=== PATIENT | male | born 1970 | race Caucasian/White ===

== ENCOUNTER 2021-11-05 20:10 | Emergency (ER) | payer SELFPAY ==
[~2021-11-05] VITALS: Ht 175.3 cm; Wt 72.7 kg
[2021-11-05 20:32] VITALS: BP 118/84
== END 2021-11-05 23:14 | disposition left against medical advice (07) ==
LOC: ER 20:11
DX: L29.9 Pruritus, unspecified (principal); Z53.21 Procedure and treatment not carried out due to patient leaving prior to being seen by health care provider

== ENCOUNTER 2021-11-12 13:04 | Emergency (ER) | payer MEDICAID ==
[~2021-11-12] VITALS: Ht 175.3 cm; Wt 72.0 kg
[2021-11-12] MEDS ORDERED: dexamethasone sod phosphate 10mg/ml inj IV STA (13:16)
[2021-11-12] MEDS ORDERED: LIDOcaine Viscous 15ml cup MM STA (13:16)
[2021-11-12] MEDS ORDERED: clindamycin-Cleocin 900mg/D5W 50 ML IV ONE (13:20)
[2021-11-12] MEDS ORDERED: ketorolac tromethamine 15mg/ml inj. IV ONE (14:35)
[2021-11-12] MEDS ORDERED: CLIN-97 PO (14:53)
[2021-11-12] MEDS ORDERED: IBUP-1986 PO (14:54)
[2021-11-12 15:11] VITALS: BP 118/76
== END 2021-11-12 15:13 | disposition home or self-care (01) ==
LOC: ER 13:05
DX: J36 Peritonsillar abscess (principal); F17.210 Nicotine dependence, cigarettes, uncomplicated; F12.10 Cannabis abuse, uncomplicated; F15.10 Other stimulant abuse, uncomplicated; Z88.0 Allergy status to penicillin
CPT/HCPCS: 87081; 87880; 96365; 96375; 99285; J1100; J1885; J3490; 99284

== ENCOUNTER 2022-02-15 20:27 | Emergency (ER) | payer SELFPAY ==
[~2022-02-15] VITALS: Ht 175.3 cm; Wt 72.7 kg
[~2022-02-15 20:27] MED LIST: CLIN-97 PO; IBUP-1986 PO
[2022-02-15 20:41] VITALS: BP 117/74
== END 2022-02-15 23:45 | disposition left against medical advice (07) ==
LOC: ER 20:28
DX: L08.9 Local infection of the skin and subcutaneous tissue, unspecified (principal); Z53.21 Procedure and treatment not carried out due to patient leaving prior to being seen by health care provider

== ENCOUNTER 2022-05-08 20:05 | Emergency (ER) | payer MEDICAID ==
[~2022-05-08] VITALS: Ht 177.8 cm; Wt 72.7 kg
[2022-05-08 21:07] LABS: BASOPHILS # (AUTO) 0.1 X10'3 (0-0.2); BASOPHILS % (AUTO) 0.5 % (0-1); EOSINOPHILS % (AUTO) 0.5 % (0-6); HEMATOCRIT 39.1 % (42.0-52.0); HEMOGLOBIN 13.8 g/dl (14.0-17.9); LYMPHOCYTES # (AUTO) 2.2 X10'3 (1.1-4.8); LYMPHOCYTES % (AUTO) 21.4 % (21-51); MEAN CORPUSCULAR HEMOGLOBIN 33.1 PG (27.0-31.0); MEAN CORPUSCULAR HGB CONC 35.3 g/dL (33.0-36.5); MEAN CORPUSCULAR VOLUME 93.6 FL (78-98); MEAN PLATELET VOLUME 7.1 FL (7.4-10.4); MONOCYTES # (AUTO) 1.2 X10'3 (0-0.9); MONOCYTES % (AUTO) 12.1 % (2-12); NEUTROPHILS # (AUTO) 6.7 X10'3 (1.8-7.7); NEUTROPHILS % (AUTO) 65.5 % (42-75); PLATELET COUNT 253 X10'3 (140-440); RED BLOOD COUNT 4.17 X10'6 (4.70-6.10); RED CELL DISTRIBUTION WIDTH 13.2 % (11.5-14.5); WHITE BLOOD COUNT 10.2 X10'3 (4.5-11.0)
[2022-05-08 21:12] LABS: ALANINE AMINOTRANSFERASE 22 U/L (12-78); ALBUMIN/GLOBULIN RATIO 1.1 (1.1-1.5); ALKALINE PHOSPHATASE 88 IU/L (46-116); ANION GAP 6 (8-16); ASPARTATE AMINO TRANSFERASE 22 U/L (10-37); BILIRUBIN,TOTAL 0.3 MG/DL (0.1-1.0); BLOOD UREA NITROGEN 15 MG/DL (7-18); BUN/CREATININE RATIO 13.3 (5.4-32.0); CALCIUM 8.7 MG/DL (8.5-10.1); CHLORIDE 100 MMOL/L (99-107); CREATININE 1.13 MG/DL (0.60-1.10); GLUCOSE 86 MG/DL (70-104); POTASSIUM 4.1 MMOL/L (3.5-5.1); SODIUM 133 MMOL/L (135-145); TOTAL CARBON DIOXIDE 27.5 MMOL/L (24-32); TOTAL PROTEIN 7.5 G/DL (6.4-8.2); eGFR 69 ML/MIN
[2022-05-08] MEDS ORDERED: hydrOXYzine 25 MG tablet PO ONE (21:15)
[2022-05-08] MEDS ORDERED: quetiapine 100mg tablet PO ONE (21:15)
[2022-05-08 21:23] LABS: ETHANOL < 0.010 GM/DL (0.0-0.010)
[2022-05-08] MEDS ORDERED: prazosin 1mg capsule PO ONE (21:45)
[2022-05-08] MEDS ORDERED: NO HOME MEDS (21:57)
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
[2022-05-08 22:05] LABS: CLARITY,URINE CLEAR (Clear); COLOR,URINE YELLOW (Yellow); GLUCOSE, URINE NEGATIVE (Neg); KETONES,URINE NEGATIVE (Neg); LEUKOCYTE ESTERASE ,URINE NEGATIVE (Neg); NITRITES, URINE NEGATIVE (Neg); OCCULT BLOOD,URINE NEGATIVE (Neg); PH,URINE 6.5 (4.8-8.0); PROTEIN,URINE NEGATIVE (Neg); UROBILINOGEN,URINE 0.2 E.U/dL (0.2-1.0)
[2022-05-08 22:12] LABS: UA COLLECTION TYPE VOIDED; URINE AMPHETAMINE SCREEN POSITIVE (Neg); URINE BARBITUATE SCREEN NEGATIVE (Neg); URINE BENZODIAZEPINES SCREEN NEGATIVE (Neg); URINE CANNABINOID SCREEN POSITIVE (Neg); URINE COCAINE SCREEN NEGATIVE (Neg); URINE METHADONE SCREEN NEGATIVE (Neg); URINE OPIATE SCREEN NEGATIVE (Neg); URINE PHENCYCLIDINE SCREEN NEGATIVE (Neg)
--- NOTE | 2022-05-08 22:30 | NUR ---
The patient is resting on his bed.
--- NOTE | 2022-05-09 00:30 | NUR ---
The patient appears to be sleeping
--- NOTE | 2022-05-09 01:24 | NUR ---
PACKET SENT TO [facility]
--- NOTE | 2022-05-09 01:25 | NUR ---
The patient appears to be sleeping
--- NOTE | 2022-05-09 02:44 | NUR ---
The patient is restless and disturbed by another patient but is continuing to rest on his bed quietly
--- NOTE | 2022-05-09 04:01 | NUR ---
The patient appears to be sleeping
--- NOTE | 2022-05-09 04:41 | NUR ---
BROTHER, RAYMON MARTINEZGORE, . THE PATIENT IS REQUESTING INFORMATION BE ALLOWED TO HIS BROTHER
--- NOTE | 2022-05-09 05:03 | NUR ---
The patient appears to be sleeping
[2022-05-09 05:36] VITALS: BP 95/60
--- NOTE | 2022-05-09 06:30 | NUR ---
Patient laying in bed on his right side. Another patient has been loud and RN noticed patient re-adjusting. Continue to monitor.
--- NOTE | 2022-05-09 08:07 | NUR ---
Patient is sitting up and eating breakfast. No distress observed. Continue to monitor.
--- NOTE | 2022-05-09 09:35 | NUR ---
[facility], [place], evaluating patient. Patient started getting upset about Garland contacting his family. Patient started posturing and threatening to cause some trouble. Patient states "I want to go home and be with my family." [facility]land wanted to get patient a referral with Betsey the Substance Abuse Navigator. Patient did not want to wait around. [facility] to go speak with Doctor to get patient discharged.
== END 2022-05-09 10:10 | disposition home or self-care (01) ==
LOC: ER 20:06
DX: F15.10 Other stimulant abuse, uncomplicated (principal); Z20.822 Contact with and (suspected) exposure to COVID-19; F12.90 Cannabis use, unspecified, uncomplicated; Z72.89 Other problems related to lifestyle; Z88.0 Allergy status to penicillin
CPT/HCPCS: 36415; 80053; 80305; 80320; 81003; 84443; 85025; 87811; 99284; Q0177

== ENCOUNTER 2024-09-26 15:00 | Emergency (ER) | payer MEDICAID, OTHER ==
[~2024-09-26] VITALS: Ht 172.7 cm; Wt 61.4 kg
[~2024-09-26 15:00] MED LIST changes: -CLIN-97 PO; -IBUP-1986 PO; +NO HOME MEDS
[2024-09-26 17:01] VITALS: BP 120/76; PULSE 73; RESP 14; TEMP 98.4; O2SAT 99
== END 2024-09-26 17:06 ==
LOC: EEVIPCON 15:01 → ER 15:01
DX: T71.161A Asphyxiation due to hanging, accidental, initial encounter (principal); F10.90 Alcohol use, unspecified, uncomplicated; F12.90 Cannabis use, unspecified, uncomplicated; F15.90 Other stimulant use, unspecified, uncomplicated; Z88.0 Allergy status to penicillin; Y92.89 Other specified places as the place of occurrence of the external cause; Y90.9 Presence of alcohol in blood, level not specified
CPT/HCPCS: 70490; 99284

== ENCOUNTER 2024-10-15 17:07 | Emergency (ER) | payer MEDICAID ==
[~2024-10-15] VITALS: Ht 175.3 cm; Wt 70.7 kg
[~2024-10-15 17:07] MED LIST changes: +GABA-535 PO; +MIRT-142 PO; -NO HOME MEDS; +QUET100T34 PO
[2024-10-15 17:22] VITALS: BP 119/83; PULSE 83; RESP 18; TEMP 97.3; O2SAT 97
== END 2024-10-15 20:50 | disposition left against medical advice (07) ==
LOC: ER 17:08
DX: Z00.8 Encounter for other general examination (principal); Z53.21 Procedure and treatment not carried out due to patient leaving prior to being seen by health care provider; Z88.0 Allergy status to penicillin

== ENCOUNTER 2024-12-15 18:41 | Emergency (ER) | payer MEDICAID ==
[~2024-12-15] VITALS: Ht 175.3 cm; Wt 67.0 kg
[2024-12-15 19:31] LABS: BASOPHILS # (AUTO) 0.1 X10'3 (0-0.2); BASOPHILS % (AUTO) 0.6 % (0-1); EOSINOPHILS # (AUTO) 0.1 X10'3 (0-0.9); EOSINOPHILS % (AUTO) 1.3 % (0-6); HEMOGLOBIN 14.7 g/dl (14.0-17.9); LYMPHOCYTES # (AUTO) 2.2 X10'3 (1.1-4.8); LYMPHOCYTES % (AUTO) 22.4 % (21-51); MEAN CORPUSCULAR HEMOGLOBIN 30.6 PG (27.0-31.0); MEAN CORPUSCULAR HGB CONC 33.3 g/dL (33.0-36.5); MEAN CORPUSCULAR VOLUME 91.9 FL (78-98); MEAN PLATELET VOLUME 8.3 FL (7.4-10.4); NEUTROPHILS # (AUTO) 6.3 X10'3 (1.8-7.7); NEUTROPHILS % (AUTO) 65.7 % (42-75); PLATELET COUNT 248 X10'3 (140-440); RED BLOOD COUNT 4.78 X10'6 (4.70-6.10); RED CELL DISTRIBUTION WIDTH 13.7 % (11.5-14.5); WHITE BLOOD COUNT 9.6 X10'3 (4.5-11.0)
[2024-12-15 19:33] LABS: ANION GAP 12 (8-16); BLOOD UREA NITROGEN 17 MG/DL (7-18); CALCIUM 8.6 MG/DL (8.5-10.1); CHLORIDE 104 MMOL/L (99-107); CREATININE 1.13 MG/DL (0.60-1.10); ETHANOL 84 MG/DL (<10); GLUCOSE 120 MG/DL (70-104); POTASSIUM 3.9 MMOL/L (3.5-5.1); SODIUM 141 MMOL/L (135-145); TOTAL CARBON DIOXIDE 24.7 MMOL/L (24-32); eCRCL 72 ML/MIN; eGFR 68 ML/MIN
[2024-12-15] MEDS ORDERED: GABA-535 PO (20:21)
[2024-12-15] MEDS ORDERED: GABA-530 PO (20:21)
[2024-12-15] MEDS ORDERED: MIRT-87 PO (20:21)
[2024-12-15] MEDS ORDERED: QUET-1 PO (20:21)
[2024-12-15] MEDS: quetiapine 100mg tablet PO SCH (21:16)
[2024-12-15] MEDS: gabapentin 400mg capsule PO SCH (21:16)
[2024-12-15] MEDS: mirtazapine 15mg tablet PO SCH (21:16)
[2024-12-16 00:48] LABS: BILIRUBIN,URINE NEGATIVE (Neg); CLARITY,URINE CLEAR (Clear); COLOR,URINE YELLOW (Yellow); GLUCOSE, URINE NEGATIVE (Neg); KETONES,URINE NEGATIVE (Neg); LEUKOCYTE ESTERASE ,URINE NEGATIVE (Neg); NITRITES, URINE NEGATIVE (Neg); OCCULT BLOOD,URINE NEGATIVE (Neg); PH,URINE 5.5 (4.8-8.0); PROTEIN,URINE NEGATIVE (Neg); UROBILINOGEN,URINE 0.2 E.U/dL (0.2-1.0)
[2024-12-16 00:49] LABS: UA COLLECTION TYPE VOIDED
[2024-12-16 00:57] LABS: URINE AMPHETAMINE SCREEN POSITIVE (Neg); URINE BARBITUATE SCREEN NEGATIVE (Neg); URINE BENZODIAZEPINES SCREEN NEGATIVE (Neg); URINE CANNABINOID SCREEN POSITIVE (Neg); URINE COCAINE SCREEN NEGATIVE (Neg); URINE METHADONE SCREEN NEGATIVE (Neg); URINE OPIATE SCREEN NEGATIVE (Neg); URINE PHENCYCLIDINE SCREEN NEGATIVE (Neg)
[2024-12-16 08:41] VITALS: BP 94/56; PULSE 74; RESP 18; O2SAT 98
[2024-12-16 11:43] VITALS: TEMP 97.6
== END 2024-12-16 11:47 | disposition home or self-care (01) ==
LOC: ER 18:42
DX: R45.851 Suicidal ideations (principal); F32.A Depression, unspecified; F12.90 Cannabis use, unspecified, uncomplicated; F17.200 Nicotine dependence, unspecified, uncomplicated; F15.90 Other stimulant use, unspecified, uncomplicated; Z88.0 Allergy status to penicillin; Z88.8 Allergy status to other drugs, medicaments and biological substances; Z20.822 Contact with and (suspected) exposure to COVID-19
CPT/HCPCS: 36415; 80048; 80305; 80320; 81003; 85025; 87811; 99285

== ENCOUNTER 2024-12-26 10:10 | Emergency (ER) | payer MEDICAID ==
[~2024-12-26] VITALS: Ht 175.3 cm; Wt 66.3 kg
[~2024-12-26 10:10] MED LIST changes: -MIRT-142 PO; +MIRT-87 PO; +QUET-1 PO; -QUET100T34 PO
--- NOTE | 2024-12-26 10:21 | ELECTROCARDIOGRAPH REPORT ---
[facility] Test Date: 2024-12-26 Test Time: 10:19:09 Pat Name: ALYCE GONZALEZ Department: [facility] Patient ID: [id number] Room: Gender: M Senior Web Engineer: : 1970 Requested By: MALINI MERCHANT Order Number: [id number] Reading MD: Dr. Tre Roberts Measurements Intervals [place] Rate: 110 P: 81 FL: 146 QRS: 58 QRSD: 87 T: 50 QT: 324 QTc: 439 Interpretive Statements Sinus tachycardia Probable left atrial enlargement Electronically Signed On 12-26-2024 20:38:[address] Tre Roberts Please click the below link to view image of tracing.
[2024-12-26 10:30] LABS: BASOPHILS # (AUTO) 0.1 X10'3 (0-0.2); BASOPHILS % (AUTO) 1.1 % (0-1); EOSINOPHILS # (AUTO) 0.1 X10'3 (0-0.9); EOSINOPHILS % (AUTO) 1.4 % (0-6); HEMATOCRIT 42.4 % (42.0-52.0); HEMOGLOBIN 14.2 g/dl (14.0-17.9); LYMPHOCYTES # (AUTO) 2.3 X10'3 (1.1-4.8); MEAN CORPUSCULAR HEMOGLOBIN 30.7 PG (27.0-31.0); MEAN CORPUSCULAR HGB CONC 33.4 g/dL (33.0-36.5); MEAN CORPUSCULAR VOLUME 91.8 FL (78-98); MEAN PLATELET VOLUME 7.7 FL (7.4-10.4); MONOCYTES % (AUTO) 11.3 % (2-12); NEUTROPHILS # (AUTO) 5.6 X10'3 (1.8-7.7); NEUTROPHILS % (AUTO) 61.2 % (42-75); PLATELET COUNT 283 X10'3 (140-440); RED BLOOD COUNT 4.62 X10'6 (4.70-6.10); RED CELL DISTRIBUTION WIDTH 14.1 % (11.5-14.5); WHITE BLOOD COUNT 9.2 X10'3 (4.5-11.0)
[2024-12-26 10:54] LABS: ALANINE AMINOTRANSFERASE 26 U/L (12-78); ALBUMIN 3.8 G/DL (3.4-5.0); ALBUMIN/GLOBULIN RATIO 1.1 (1.1-1.5); ALKALINE PHOSPHATASE 66 IU/L (46-116); ANION GAP 9 (8-16); ASPARTATE AMINO TRANSFERASE 40 U/L (10-37); BILIRUBIN,TOTAL 0.5 MG/DL (0.1-1.0); BLOOD UREA NITROGEN 7 MG/DL (7-18); BUN/CREATININE RATIO 8.1 (10.0-20.0); CALCIUM 8.5 MG/DL (8.5-10.1); CHLORIDE 103 MMOL/L (99-107); CREATININE 0.86 MG/DL (0.60-1.10); GLUCOSE 107 MG/DL (70-104); POTASSIUM 3.4 MMOL/L (3.5-5.1); SODIUM 136 MMOL/L (135-145); TOTAL CARBON DIOXIDE 23.8 MMOL/L (24-32); TOTAL PROTEIN 7.2 G/DL (6.4-8.2); eCRCL 94 ML/MIN; eGFR > 90 ML/MIN
--- NOTE | 2024-12-26 10:57 | RADIOLOGY REPORT ---
EXAM: DI CHEST,SINGLE VIEW Indication: CP Technique: Single frontal view of the chest was obtained Comparison: None FINDINGS: Lines and Tubes: None Lungs: No focal consolidation. Pleura: No effusion. No pneumothorax. Cardiomediastinal contours: Unremarkable Bones: No acute osseous abnormality. IMPRESSION: No acute cardiopulmonary disease.
[2024-12-26 11:02] LABS: PRO BRAIN NATRIURETIC PEPTIDE 404 PG/ML (0-125)
--- NOTE | 2024-12-26 11:39 | Physician Documentation ---
History of Present Illness ~ Chief Complaint: Bloody Sputum Stated Complaint: MULTIPLE MED COMPLAINTS Time Seen by MD: 11:37 Primary Medical Doctor: Robert walk-in HPI 54-year-old male presenting with shortness of breath and a cough that has been present for the past month. Patient states that his coughs have been productive of bloody sputum. He also states that it hurts when he breathes. He has pain in his chest when he takes deep breaths. He also has trouble catching his breath. The patient endorses that he is a heavy smoker and has smoked for many years. He denies any fever, chills or any other associated symptoms. He states that he was incarcerated and was released from skilled nursing nine months ago. While in skilled nursing he states that he saw a doctor who told him he has several nodules in his lungs and that he needs to immediately stop smoking. He states that he stopped for a little while but once again started when he got out of skilled nursing. Medication Reconciliation Allergies: Coded Allergies: Penicillins (Verified Allergy, Unknown, UNKNOWN, 12/15/24) Scheduled Gabapentin (Gabapentin), 1 CAP PO TID, (Reported) Mirtazapine (Mirtazapine), 3 TAB PO HS, (Reported) Quetiapine Fumarate (Seroquel), 1 TAB PO HS, (Reported) Past Medical History Past Medical History: Depression, Psychosis Past Surgical History: no surgical history Patient History: FH: diabetes mellitus MOTHER Paternal grandmother Alcohol Use: Occasionally Drug Use: marijuana, methamphetamine Lives In: Home Review of Systems All Other Systems at this time: Reviewed and Negative Physical Exam Vital Signs: Temperature: 98.9, Source: Oral, Heart Rate: 110, Respiratory Rate: 16, BP: 105/78, Pulse Oximetry: 97, Weight: 66.300 Oxygen Flow Rate: 0 Physical Exam I have reviewed the triage vitals. CONST: Well developed and well nourished. In no acute distress HENT: Head Atraumatic EYES: Pupils are equal, round and reactive to light. Normal conjunctiva NECK: Normal range of motion. Supple. CARDIO: Normal rate and regular rhythm. No murmurs, rubs, or gallops. S1, S2. PULM/CHEST: No respiratory distress. Lungs clear to auscultation. No wheeze ABD: Soft and nontender. Nondistended. Bowel sounds normal. No guarding. : Exam deferred MSK: No edema. No deformity. NEURO: Alert and oriented to person, place and time. Moving all extremities SKIN: Warm and dry. PSYCH: Normal mood and affect. Good eye contact. Progress Results/Orders Results/Orders Orders - MALINI MERCHANT MD Chest,Single View (12/26/24 10:15) Monitor (12/26/24 10:15) Saline Lock (12/26/24 10:15) Oxygen (12/26/24 10:15) Hs Troponin I W Calculations (12/26/24 13:15) Cta Chest Pe (12/26/24 ) Completed Orders - MALINI MERCHANT MD Chest,Single View (12/26/24 10:15) Cbc/Diff (12/26/24 10:15) PBNP (12/26/24 10:15) Electrocardiogram (12/26/24 10:15) CMP (12/26/24 10:15) Hs Troponin I W Calculations (12/26/24 10:15) Hs Troponin I W Calculations (12/26/24 12:15) Prednisone Tablet (Prednisone Tablet) (12/26/24 11:45) Hydrocodone/Apap 5/325mg Tab ([place] 5/32 (12/26/24 11:45) Cta Chest Pe (12/26/24 ) Normal Saline 1000ml (Sodium Chloride 10 (12/26/24 11:45) Iohexol 350mg/Ml 100ml (Omnipaque 350mg/ (12/26/24 12:08) Lorazepam Tablet (Ativan Tablet) (12/26/24 12:15) Ondansetron Inj. (Zofran 4mg/2ml Vial) (12/26/24 15:05) Medications Received in ER Medications (Trade) Dose Ordered Sig/Alissa Route PRN Reason Start Time Stop Time Status Last Admin Dose Admin (predniSONE tablet) 60 mg ONCE ONCE PO 12/26/24 11:45 12/26/24 11:47 DC 12/26/24 12:04 60 MG ([place] 5/325mg tablet) 2 tab ONCE ONCE PO 12/26/24 11:45 12/26/24 11:47 DC 12/26/24 12:04 2 TAB (Ativan tablet) 2 mg ONCE ONCE PO 12/26/24 12:15 5/1/25 12:16 DC 12/26/24 12:38 2 MG (Zofran 4mg/2ml vial) 4 mg ONCE ONCE IV 12/26/24 15:05 12/26/24 15:06 DC 12/26/24 15:17 4 MG Vital Signs 12/26/24 12/26/24 12/26/24 12/26/24 10:11 12:04 12:51 15:00 Temp 98.9 97.8 Pulse 110 77 Resp 16 18 19 18 B/P (MAP) 105/78 117/66 (83) Pulse Ox 97 98 O2 Flow Rate 0 Laboratory Tests Test 12/26/24 10:20 12/26/24 12:27 White Blood Count 9.2 Red Blood Count 4.62 L Hemoglobin 14.2 Hematocrit 42.4 Mean Corpuscular Volume 91.8 Mean Corpuscular Hemoglobin 30.7 Mean Corpuscular Hemoglobin Concent 33.4 Red Cell Distribution Width 14.1 Platelet Count 283 Mean Platelet Volume 7.7 Neutrophils (%) (Auto) 61.2 Lymphocytes (%) (Auto) 25.0 Monocytes (%) (Auto) 11.3 Eosinophils (%) (Auto) 1.4 Basophils (%) (Auto) 1.1 H Neutrophils # (Auto) 5.6 Lymphocytes # (Auto) 2.3 Monocytes # (Auto) 1.0 H Eosinophils # (Auto) 0.1 Basophils # (Auto) 0.1 CBC Comment Sodium Level 136 Potassium Level 3.4 L Chloride Level 103 Carbon Dioxide Level 23.8 L Anion Gap 9 Blood Urea Nitrogen 7 Creatinine 0.86 Estimated GFR/1.73 m2 > 90 BUN/Creatinine Ratio 8.1 L Glucose Level 107 H Calcium Level 8.5 Total Bilirubin 0.5 Aspartate Amino Transf (AST/SGOT) 40 H Alanine Aminotransferase (ALT/SGPT) 26 Alkaline Phosphatase 66 Troponin I High Sensitivity 6 8 Pro-B-Type Natriuretic Peptide 404 H Total Protein 7.2 Albumin 3.8 Globulin 3.4 Albumin/Globulin Ratio 1.1 Chemistry Comments Troponin I High Sens Percent Delta 33 Troponin I Hi Sens Absolute Change 2 EKG/XRAY/CT/US/VASC/MRI EKG : Additional Comment Sinus tachycardia with a rate of 110 beats per minute, no ischemia, normal axis, EKG interpreted by me Chest X-Ray : Additional Comments EXAM: DI CHEST,SINGLE VIEW Indication: CP Technique: Single frontal view of the chest was obtained Comparison: None FINDINGS: Lines and Tubes: None Lungs: No focal consolidation. Pleura: No effusion. No pneumothorax. Cardiomediastinal contours: Unremarkable Bones: No acute osseous abnormality. IMPRESSION: No acute cardiopulmonary disease. Departure Disposition: HOME / SELF CARE / HOMELESS Impression: Primary Impression: COPD exacerbation Additional Impressions: Nicotine dependence Tobacco use disorder Referrals: NO PRIMARY CARE PROVIDER (PCP) Prescriptions Nicotine Polacrilex (Nicotine Lozenge) 2 Mg Lozenge 1 LOZENGE SL Q12H for 10 Days, #20 LOZENGE 0 Refills Prov: MALINI MERCHANT MD 12/26/24 albuterol inhaler (Pro-Air Inhaler) 8.5 Gm Inhaler 2 PUFFS INH Q4HPRN PRN for wheezing for 30 Days, #18 GM Prov: MALINI MERCHANT MD 12/26/24 Azithromycin (Azithromycin) 250 Mg Tablet 1 TAB PO UD for 5 Days, #6 TAB 2 the first day followed by 1 for days 2-5 Prov: MALINI MERCHANT MD 12/26/24 MALINI MERCHANT MD December 26, 2024 11:39
[2024-12-26] MEDS: normal saline 1000ml 1,000 ML IV ONE (12:02)
[2024-12-26] MEDS: predniSONE 20 mg tablet PO ONE (12:04)
[2024-12-26] MEDS: HYDROcodone/acetaminophen 5mg/325mg tablet PO ONE (12:04)
[2024-12-26] MEDS ORDERED: iohexol 350MG/ML 100ml bottle IV ONE (12:08)
[2024-12-26] MEDS: LORazepam 1 MG tablet PO ONE (12:38)
[2024-12-26 15:00] VITALS: BP 117/66; PULSE 77; RESP 18; O2SAT 98
[2024-12-26] MEDS: ondansetron/PF 4mg/2ml inj IV ONE (15:17)
--- NOTE | 2024-12-26 16:14 | RADIOLOGY REPORT ---
INDICATION: r/o pe, assess for lung ca COMPARISON: None TECHNIQUE: Multidetector CTA of the chest was performed of the chest with 100 cc of intravenous contr ast. PULMONARY ANGIOGRAPHY PROTOCOL was utilized using a bolus-tracking technique centered on the juan n pulmonary artery. Axial, coronal and sagittal multiplanar and MIP reformats were performed. Radiation Dose Information: CT Dose: CTDI volume is 32.66 mGy. Dose-length product is 389.2 mGy*cm The dose indicators for CT are the volume Computed Tomography (CT) Dose Index (CTDIvol) and the Dose Length Product (DLP), and are measured in units of mGy and mGy-cm, respectively. These indicators are not patient dose, but values generated from the CT scanner acquisition factors. The report includes radiation exposure data for exposures received during this examination. Findings: Pulmonary artery: Normal caliber of the pulmonary artery. No large central or large segmental pulmo nary embolism. Lower neck: Normal thyroid. Lungs: Pulmonary nodules or masses Heart/Vascular Structures: Normal heart size. Normal caliber and enhancement of the aorta. Lymph Nodes: No adenopathy Pleura: No pleural effusion or significant pneumothorax. Musculoskeletal: No acute osseous abnormality. Upper abdomen: Limited portions of the upper abdomen are unremarkable. IMPRESSION: 1. No pulmonary embolism. 2. No pulmonary artery hypertension 3. No infiltrates no effusions no pulmonary nodules or masses.
[2024-12-26] MEDS ORDERED: PRED10TA23 PO (17:05)
[2024-12-26] MEDS ORDERED: AZIT250T82 PO (17:05)
[2024-12-26] MEDS ORDERED: ALBU8HFA INH (17:06)
[2024-12-26] MEDS ORDERED: NICO-669 SL (17:06)
[2024-12-26 17:09] VITALS: TEMP 97.8
== END 2024-12-26 17:11 | disposition home or self-care (01) ==
LOC: ER 10:11
DX: J44.1 Chronic obstructive pulmonary disease with (acute) exacerbation (principal); F17.200 Nicotine dependence, unspecified, uncomplicated; F32.A Depression, unspecified; F29 Unspecified psychosis not due to a substance or known physiological condition; F12.90 Cannabis use, unspecified, uncomplicated; F15.90 Other stimulant use, unspecified, uncomplicated; Z88.0 Allergy status to penicillin; Z79.899 Other long term (current) drug therapy; Z72.89 Other problems related to lifestyle
CPT/HCPCS: 36415; 71045; 71275; 80053; 83880; 84484; 85025; 93005; 96374; 99285; J2405; J7512; Q9967

== ENCOUNTER → 2025-03-15 | Emergency (ER) | payer MEDICAID ==
[~2025-03-15] VITALS: Ht 175.3 cm; Wt 49.7 kg
[~2025-03-15] MED LIST changes: +BENZ9GEL TOP; +HYDR-3965 PO; +NICO-669 SL
[2025-03-15 15:06] VITALS: BP 99/63; PULSE 61; TEMP 98.1; O2SAT 100
--- NOTE | 2025-03-15 16:10 | Physician Documentation ---
HPI ~ General Chief Complaint: Tooth Problem Stated Complaint: TOOTH PROBLEM Time Seen by MD: 15:35 OK to notify your PCP?: Yes Primary Medical Doctor: Robert walk-in Source: patient Mode of Arrival: POV Exam Limitations: no limitations History of Present Illness HPI Comment 54-year-old male presents with right upper tooth pain. Has been taking Tylenol and ibuprofen for pain relief at home with little relief. He has an appointment on Monday to see his dentist and he has been taking clindamycin for the past 7 days. He has multiple dental caries to several remaining teeth but no jaw swelling, cheek swelling or cervical lymphadenopathy. Medication Reconciliation Allergies: Coded Allergies: Penicillins (Verified Allergy, Unknown, UNKNOWN, 12/15/24) Scheduled Gabapentin (Gabapentin), 1 CAP PO TID, (Reported) Mirtazapine (Mirtazapine), 3 TAB PO HS, (Reported) Nicotine Polacrilex (Nicotine Lozenge), 1 LOZENGE SL Q12H Quetiapine Fumarate (Seroquel), 1 TAB PO HS, (Reported) Past Medical History Past Medical History: Depression, Psychosis Past Surgical History: no surgical history Patient History: FH: diabetes mellitus MOTHER Paternal grandmother Alcohol Use: Occasionally Drug Use: marijuana, methamphetamine Lives In: Home Review of Systems All Other Systems at this time: Reviewed and Negative Physical Exam Vital Signs: RN Vital Signs have been reviewed: Yes, Temperature: 98.1, Source: Temporal, Heart Rate: 61, Respiratory Rate: 16, BP: 99/63, Pulse Oximetry: 100, Weight: 49.700 Pulse Oximetry Reflects: adequate oxygenation Physical Exam General: Alert, no distress. HEENT: No injection, moist mucous membranes. Neck: Full range of motion. Respiratory: No respiratory distress, equal chest rise and fall. Chest: No accessory muscle use. Cardiovascular: Regular rate and rhythm. Gastrointestinal: Nondistended. Extremities: Normal range of motion, no deformity. Neurologic: Oriented x4. Psychiatric: Normal mood and affect. Skin: Normal color, warm and dry. Palate: normal inspection Teeth/Gums: carious, fractured tooth, missing teeth, tender, gingiva redness Face: normal inspection Head: normal inspection Neck: non-tender Progress Results/Orders Reviewed/noted all lab results: Yes Results/Orders Vital Signs 03/15/25 15:06 Temp 98.1 Pulse 61 Resp 16 B/P (MAP) 99/63 Pulse Ox 100 Medical Decision Making Additional info obtained from: old records Findings 54-year-old male presents with multiple dental caries. He has been on 7 days of clindamycin and has been taking ibuprofen but is still experiencing pain. His physical exam is reassuring but shows broken number 3 4 and 5 teeth and some gingival redness. He has an appointment with his dentist on Monday and has plans to have extractions of all of these teeth. I gave him a [place] while here in the department and get prescriptions for [place] and benzocaine gel. He should continue with his dentist appointment Monday and continue taking the rest of his prescription for the clindamycin. You can continue to take Tylenol and or ibuprofen for pain relief but take care not to exceed 4000 mg of Tylenol in a 24 hour period. Differential Dx:Considerations: Include: Facial Cellulitis, Periapical abscess, Peridontal abscess, Trigeminal neuralgia, Tooth subluxation Departure Disposition: HOME / SELF CARE / HOMELESS Impression: Primary Impression: Toothache Condition: Stable Discharge Instructions: Dental Pain Additional Instructions: Please continue with your dental appointment on Monday. Please use Tylenol and/or ibuprofen for pain relief and if that is not helping then please use the prescribed [place] but no driving with this. Take care to not take over 4000 mg of Tylenol within a 24 hour period. You can also use the prescribed benzocaine directly at the tooth that is hurting to help with pain relief as well. Continue taking the remaining prescription of clindamycin. Referrals: NO PRIMARY CARE PROVIDER (PCP) Prescriptions Benzocaine (Anbesol) 20 % Gel..gm. 1 APPLIC TOP Q8H for 5 Days, #9 GM 0 Refills Prov: WHITNEY ORTIZ [employer] INST[employer]ER 03/15/25 Hydrocodone Bit/Acetaminophen 5/325 MG ([place] 5/325 MG) 5 Mg/325 Mg Tablet 1 TAB PO TID PRN PRN for pain for 5 Days, #15 TAB Prov: WHITNEY ORTIZ [facility] 03/15/25 Education Educated: Patient Educated regarding: diagnosis, treatment, prognosis, need for follow up Additional Comment Medical Screen Exam This patient recieved a medical screening examination. After reviewing the individual's medical complaints with presenting symptoms and performing an appropriate physical examination, it was determined that no immediate life- threatening emergency medical condition is present. This individual is also not a women having contractions. Signature Scribe Signature: . Attestation: Scribed for Whitney Ortiz by Whitney Allen NP . 03/15/25 16:17 Parts of this note were created using [employer] voice recognition software program. While efforts were made to correct any mistakes made by this voice recognition software program, nonsensical phrases may remain in this note. In addition, there may be errors and syntax, grammar, content and spelling. WHITNEY ORTIZ [employer] PU[employer] INSTALLER Mar 15, 2025 16:10
[2025-03-15 16:48] VITALS: RESP 16
[2025-03-15] MEDS: HYDROcodone/acetaminophen 5mg/325mg tablet PO ONE (16:48)
== END | disposition home or self-care (01) ==
LOC: ER 15:02
DX: K08.89 Other specified disorders of teeth and supporting structures (principal); F32.A Depression, unspecified; F12.90 Cannabis use, unspecified, uncomplicated; F15.90 Other stimulant use, unspecified, uncomplicated; Z88.0 Allergy status to penicillin; Z79.899 Other long term (current) drug therapy; Z72.89 Other problems related to lifestyle
CPT/HCPCS: 99283

== ENCOUNTER 2025-05-30 17:26 | Emergency (ER) | payer MEDICAID ==
[~2025-05-30] VITALS: Ht 175.3 cm; Wt 71.1 kg
[~2025-05-30 17:26] MED LIST changes: -BENZ9GEL TOP; +GABA-1405 PO; -GABA-535 PO; -HYDR-3965 PO; -MIRT-87 PO; +MULT-1249 PO; -NICO-669 SL; -QUET-1 PO; +QUET100T34 PO; +THIA100T66 PO
--- NOTE | 2025-05-30 18:18 | Physician Documentation ---
History of Present Illness ~ Chief Complaint: Mental Health Eval Stated Complaint: MH Time Seen by MD: 17:45 Primary Medical Doctor: Robert walk-in Mode of Arrival: Ambulatory HPI This is a 54-year-old male with a history of schizophrenia and methamphetamine abuse who presents with feelings of suicidal ideation, patient had recent stressor of witnessed a murder transitional housing facility. Patient reports as a result of this incident he has lost his place and transitional housing in his become on housed, due to concern for the drowsiness his psychiatric medications cause and feeling unsafe on the street when drowsy he has been off his psychiatric medications for the last week. Patient reports that he is hearing voices and having thoughts of hanging himself. Patient reports recent methamphetamine use as well. Medication Reconciliation Allergies: Coded Allergies: Penicillins (Verified Allergy, Unknown, UNKNOWN, 05/30/25) Scheduled Gabapentin (Gabapentin), 1 TAB PO TID, (Reported) Multivitamin (Multi Vitamin Daily), 1 TAB PO DAILY, (Reported) Quetiapine Fumarate (Seroquel), 2 TAB PO HS, (Reported) Discontinued Medications Thiamine Hcl (Vitamine B-1), 1 TAB PO DAILY Discontinued Reason: patient no longer taking Varenicline Tartrate (Varenicline Tartrate), 1 TAB PO BID, (Reported) Discontinued Reason: patient no longer taking Past Medical History Past Medical History: Depression, Psychosis Past Surgical History: no surgical history Patient History: FH: diabetes mellitus MOTHER Paternal grandmother Alcohol Use: Occasionally Drug Use: marijuana, methamphetamine Lives with: Alone Lives In: Home, Homeless Occupation: unemployed Review of Systems ROS As stated above in the HPI, otherwise all systems are reviewed and negative. Physical Exam Vital Signs: Temperature: 98.6, Source: Temporal, Heart Rate: 82, Respiratory Rate: 16, BP: 138/80, Pulse Oximetry: 99, Weight: 71.100 Oxygen Flow Rate: 0 Physical Exam VITALS: Reviewed and as above. GENERAL: Alert, nontoxic appearing, no apparent distress. HEENT: PERRLA, EOMI RESPIRATORY: No increased work of breathing, no respiratory distress, speaking in full clear sentences CV: Regular rate and rhythm no murmur BACK: Nontender to palpation, no CVA tenderness GI: Soft, nontender, nondistended, no rebound, no guarding MUSCULOSKELETAL: No obvious deformities, range of motion intact in all extremities SKIN: Warm and dry NEURO: GCS 15 PSYCH: Making statements of SI, mildly anxious appearing. Normal mood and affect, no agitation. Progress Results/Orders Results/Orders Vital Signs 05/30/25 05/30/25 05/31/25 05/31/25 17:28 17:43 06:02 08:17 Temp 98.6 97.8 Pulse 82 84 Resp 18 16 16 14 B/P (MAP) 138/80 138/80 (99) Pulse Ox 99 99 O2 Flow Rate 0 05/31/25 05/31/25 05/31/25 05/31/25 11:56 12:58 13:01 14:32 Pulse 69 67 65 Resp 16 14 20 12 B/P (MAP) 104/60 (75) 104/65 (78) 98/59 (72) Pulse Ox 97 98 100 O2 Flow Rate 0 0 05/31/25 05/31/25 06/01/25 06/01/25 18:24 18:25 05:57 08:45 Temp 96.3 97.4 Pulse 70 83 Resp 17 16 B/P (MAP) 116/68 (84) 108/69 (82) Pulse Ox 99 97 O2 Flow Rate 0 06/02/25 06/02/25 02:33 05:25 Temp 98.6 Pulse 78 Resp 16 16 B/P (MAP) 118/70 (86) Pulse Ox 97 O2 Flow Rate 0 Laboratory Tests Test 05/30/25 18:19 05/30/25 18:23 05/30/25 18:24 05/31/25 12:20 White Blood Count 11.2 H Red Blood Count 4.36 L Hemoglobin 13.8 L Hematocrit 40.7 L Mean Corpuscular Volume 93.3 Mean Corpuscular Hemoglobin 31.6 H Mean Corpuscular Hemoglobin Concent 33.8 Red Cell Distribution Width 14.2 Platelet Count 310 Mean Platelet Volume 7.4 Neutrophils (%) (Auto) 77.2 H Lymphocytes (%) (Auto) 14.0 L Monocytes (%) (Auto) 7.6 Eosinophils (%) (Auto) 0.6 Basophils (%) (Auto) 0.6 Neutrophils # (Auto) 8.6 H Lymphocytes # (Auto) 1.6 Monocytes # (Auto) 0.8 Eosinophils # (Auto) 0.1 Basophils # (Auto) 0.1 CBC Comment Sodium Level 136 Potassium Level 4.0 Chloride Level 102 Carbon Dioxide Level 23.7 L Anion Gap 10 Blood Urea Nitrogen 18 Creatinine 0.97 Estimated GFR/1.73 m2 81 BUN/Creatinine Ratio 18.6 Glucose Level 77 Calcium Level 8.9 Albumin 3.9 Thyroid Stimulating Hormone (TSH) 0.96 Chemistry Comments Ethyl Alcohol Level < 10 Urine Specimen Description Non-specified Urine Color Yellow Urine Clarity Clear Urine pH 5.5 Urine Specific [place] >=1.030 Urine Protein Negative Urine Glucose (UA) Negative Urine Ketones 40 H Urine Occult Blood Negative Urine Nitrite Negative Urine Bilirubin Small Urine Urobilinogen 0.2 Urine Leukocyte Esterase Negative Volume Urine Centrifuged 10 ml Urine Comment Urine Opiates Screen Negative Urine Methadone Screen Negative Urine Fentanyl Screen Negative Urine Barbiturates Screen Negative Urine Phencyclidine Screen Negative Urine Amphetamines Screen Positive Urine Benzodiazepines Screen Negative Urine Cocaine Screen Negative Urine Cannabinoids Screen Positive Drug Screen Comment SARS-CoV-2 Antigen (Rapid) Negative Glucometer 89 Medical Decision Making Findings This 54-year-old male with a history of paranoid schizophrenia presented to the emergency department with feelings of suicidal ideation. MSE performed in triage and patient placed on 179 hold due to danger to self and placed in available ED room immediately with close observation. Physical exam was benign and patient is well-appearing reporting no other acute symptoms or concerns. Transfer orders for [facility]: At this time there is no evidence of an emergent medical condition that would preclude (admission/transfer) to a psychiatric unit via [facility] protocol for further psychiatric, as well as medical evaluation and treatment. At this time I have no reason to believe that transfer via [facility] would have serious medical compromise in the patient's health. Differential Dx:Considerations: Include: Alcohol abuse, Anxiety, Bipolar disorder, Conversion disorder, Depression, Encephaloathy, Homicidal, Panic disorder, Personality disorder, Schizophrenia, Substance abuse, Suicidal Departure Disposition: [address] [place] [address] Impression: Primary Impression: Suicidal ideation Additional Impression: History of paranoid schizophrenia Condition: Stable Discharge Instructions: Suicidal Feelings: How to Help Yourself Additional Instructions: Transfer orders for [facility]: At this time there is no evidence of an emergent medical condition that would preclude (admission/transfer) to a psychiatric unit via [facility] protocol for further psychiatric, as well as medical evaluation and treatment. At this time I have no reason to believe that transfer via [facility] protocol would have serious medical compromise in the patient's health. Referrals: NO PRIMARY CARE PROVIDER (PCP) Education Educated: Patient Educated regarding: diagnosis, treatment, prognosis, need for follow up Signature Scribe Signature: No scribe Attestation: The note accurately reflects work and decisions made by me.MICHAEL Rosales 05/31/25 01:46 Addendum 06/01/25 I assumed care of this patient at shift change. No acute events during my shift. Plan is pending placement at [facility], likely tomorrow. Jakob Wylie MD Addendum Pt signed out to me as part of their psychiatric ED evaluation. Pt resting well. Vital signs within expected ranges. Brief Physical Examination: Alert and appropriately oriented. No signs of respiratory distress. Able to ambulate and move all extremities. Medical evaluation does not indicate metabolic derangement. Awaiting final disposition. Though possibly present, patient's symptoms are more consistent with psychiatric concerns than syndromes related to recreational drug use. No evidence of DT's while in the ED during my shift. Ambulating without difficulty. Speaking in full sentences. Easily arousable and interactive. Hemodynamically stable. The patient is currently awaiting Behavioral Health final evaluation and disp osition. NEVIN MEDRANO May 30, 2025 18:18 JAKOB WYLIE MD Jun 01, 2025 16:05 TABATHA MCCLAIN MD Jun 02, 2025 06:44
[2025-05-30 18:27] LABS: MEAN PLATELET VOLUME 7.4 FL (7.4-10.4); RED CELL DISTRIBUTION WIDTH 14.2 % (11.5-14.5)
[2025-05-30 18:48] LABS: CREATININE 0.97 MG/DL (0.60-1.10); ETHANOL < 10 MG/DL (<10); TOTAL CARBON DIOXIDE 23.7 MMOL/L (24-32); eCRCL 89 ML/MIN; eGFR 81 ML/MIN
[2025-05-30 19:00] LABS: LEUKOCYTE ESTERASE ,URINE NEGATIVE (Neg); NITRITES, URINE NEGATIVE (Neg); OCCULT BLOOD,URINE NEGATIVE (Neg)
[2025-05-30] MEDS ORDERED: VARE1TAB24 PO (19:12)
[2025-05-30 19:13] LABS: URINE AMPHETAMINE SCREEN POSITIVE (Neg); URINE BARBITUATE SCREEN NEGATIVE (Neg); URINE BENZODIAZEPINES SCREEN NEGATIVE (Neg); URINE CANNABINOID SCREEN POSITIVE (Neg); URINE COCAINE SCREEN NEGATIVE (Neg); URINE METHADONE SCREEN NEGATIVE (Neg); URINE OPIATE SCREEN NEGATIVE (Neg); URINE PHENCYCLIDINE SCREEN NEGATIVE (Neg)
[2025-05-30 19:14] LABS: UA COLLECTION TYPE NON-SPECIFIED
[2025-05-31] MEDS ORDERED: MULT-1085 PO (18:34)
[2025-05-31] MEDS ORDERED: GABA-1405 PO (18:34)
[2025-05-31] MEDS ORDERED: QUET-1 PO (18:34)
[2025-06-01] MEDS: multivitamins, therapeutics tablet PO SCH (08:54)
[2025-06-02 05:25] VITALS: TEMP 98.6
[2025-06-02 13:50] VITALS: BP 107/73; PULSE 92; RESP 16; O2SAT 95
== END 2025-06-02 16:00 ==
LOC: EEVIPCON 17:27 → ER 17:27
DX: R45.851 Suicidal ideations (principal); F20.0 Paranoid schizophrenia; F12.90 Cannabis use, unspecified, uncomplicated; F15.90 Other stimulant use, unspecified, uncomplicated; Z88.0 Allergy status to penicillin; Z88.8 Allergy status to other drugs, medicaments and biological substances; Z20.822 Contact with and (suspected) exposure to COVID-19; Z79.899 Other long term (current) drug therapy
CPT/HCPCS: 36415; 80048; 80305; 80320; 81003; 82948; 84443; 85025; 87811; 99285

== ENCOUNTER 2025-06-28 19:41 | Emergency (ER) | payer MEDICAID ==
[~2025-06-28] VITALS: Ht 175.3 cm; Wt 77.3 kg
[~2025-06-28 19:41] MED LIST changes: +MULT-1085 PO; -MULT-1249 PO; +QUET-1 PO; -QUET100T34 PO; -THIA100T66 PO
[2025-06-28] MEDS ORDERED: QUET300T91 PO (20:31)
[2025-06-28 20:41] LABS: MEAN PLATELET VOLUME 7.2 FL (7.4-10.4); RED CELL DISTRIBUTION WIDTH 13.2 % (11.5-14.5)
[2025-06-28 21:02] LABS: CREATININE 1.03 MG/DL (0.60-1.10); ETHANOL 15 MG/DL (<10); TOTAL CARBON DIOXIDE 24.8 MMOL/L (24-32); eCRCL 83 ML/MIN; eGFR 76 ML/MIN
--- NOTE | 2025-06-28 21:51 | Physician Documentation ---
History of Present Illness ~ Chief Complaint: Mental Health Eval Stated Complaint: MH EVAL Time Seen by MD: 20:21 OK to notify your PCP?: Yes Primary Medical Doctor: Robert walk-in Source: patient Mode of Arrival: Ambulatory Exam Limitations: no limitations HPI 55-year-old male presents for suicidal ideation. He reports that he was living in a rehabilitation center in [facility] but he was subsequently kicked out on of this week. He reports last dose of Seroquel, trazodone was Monday night. He reports that since he was kicked out he has been wandering the streets and has relapsed and been using methamphetamine. He reports that he "is given up on life and has "nothing to live for". He [place] he was subsequently stopped by a worker from [facility] and told to come here instead. He reports that he has a history of suicidal ideation with prior hanging attempts. He is very depressed with his current living situation. Medication Reconciliation Allergies: Coded Allergies: Penicillins (Verified Allergy, Unknown, UNKNOWN, 06/28/25) Scheduled Gabapentin (Gabapentin), 1 TAB PO TID, (Reported) Multivitamin (Multi Vitamin Daily), 1 TAB PO DAILY, (Reported) Quetiapine Fumarate (Seroquel), 2 TAB PO HS, (Reported) Quetiapine Fumarate (Quetiapine Fumarate ER), 1 TAB PO HS, (Reported) Past Medical History Past Medical History: No Pertinent History, Depression, Psychosis Past Surgical History: no surgical history Patient History: FH: diabetes mellitus MOTHER Paternal grandmother Alcohol Use: Occasionally Drug Use: marijuana, methamphetamine Lives with: Alone Lives In: Home, Homeless Occupation: unemployed Review of Systems All Other Systems at this time: Reviewed and Negative Physical Exam Vital Signs: RN Vital Signs have been reviewed: Yes, Temperature: 97.8, Source: Oral, Heart Rate: 106, Respiratory Rate: 16, BP: 131/78, Pulse Oximetry: 96, Weight: 77.300 Pulse Oximetry Reflects: adequate oxygenation Physical Exam General: Alert, no apparent distress. HEENT: PERRL, EOMI, no injection, moist mucous membranes. Neck: Full range of motion. Respiratory: Lungs clear, no respiratory distress. Chest: No accessory muscle use. Cardiovascular: Regular rate and rhythm, no murmurs. Gastrointestinal: Soft, nontender, nondistended. Bowels sounds present. Extremities: Normal range of motion, no deformity. Neurologic: Oriented x4. Psychiatric: Normal mood and affect. Skin: Normal color, warm and dry. No edema, no ecchymosis. Progress Results/Orders Reviewed/noted all lab results: Yes Results/Orders Vital Signs 06/28/25 06/28/25 06/29/25 06/29/25 19:44 20:01 07:40 09:27 Temp 97.8 98.2 Pulse 106 72 Resp 16 16 12 12 B/P (MAP) 131/78 114/61 (78) Pulse Ox 96 97 O2 Flow Rate 0 Laboratory Tests Test 06/28/25 20:32 06/29/25 12:42 White Blood Count 8.6 Red Blood Count 4.39 L Hemoglobin 13.6 L Hematocrit 39.8 L Mean Corpuscular Volume 90.6 Mean Corpuscular Hemoglobin 31.0 Mean Corpuscular Hemoglobin Concent 34.2 Red Cell Distribution Width 13.2 Platelet Count 305 Mean Platelet Volume 7.2 L Neutrophils (%) (Auto) 62.7 Lymphocytes (%) (Auto) 22.2 Monocytes (%) (Auto) 12.7 H Eosinophils (%) (Auto) 1.7 Basophils (%) (Auto) 0.7 Neutrophils # (Auto) 5.4 Lymphocytes # (Auto) 1.9 Monocytes # (Auto) 1.1 H Eosinophils # (Auto) 0.1 Basophils # (Auto) 0.1 CBC Comment Sodium Level 137 Potassium Level 4.0 Chloride Level 104 Carbon Dioxide Level 24.8 Anion Gap 8 Blood Urea Nitrogen 23 H Creatinine 1.03 Estimated GFR/1.73 m2 76 BUN/Creatinine Ratio 22.3 H Glucose Level 131 H Calcium Level 7.5 L Albumin 3.5 Thyroid Stimulating Hormone (TSH) 1.54 Chemistry Comments Ethyl Alcohol Level 15 H Urine Specimen Description Urinal Urine Color Yellow Urine Clarity Clear Urine pH 6.0 Urine Specific [place] 1.015 Urine Protein Negative Urine Glucose (UA) Negative Urine Ketones Negative Urine Occult Blood Negative Urine Nitrite Negative Urine Bilirubin Negative Urine Urobilinogen 1.0 Urine Leukocyte Esterase Negative Volume Urine Centrifuged 10 ml Urine Comment Urine Opiates Screen Negative Urine Methadone Screen Negative Urine Fentanyl Screen Negative Urine Barbiturates Screen Negative Urine Phencyclidine Screen Negative Urine Amphetamines Screen Positive Urine Benzodiazepines Screen Negative Urine Cocaine Screen Negative Urine Cannabinoids Screen Positive Drug Screen Comment SARS-CoV-2 Antigen (Rapid) Negative Medical Decision Making Additional information obtaine: old records Findings He is presenting with suicidal ideation with a plan is to hang himself. He lost his housing situation due to relapsing. He has been out of his medications since leaving his rehab home. I gave him his nighttime medications which includes gabapentin 600 mg, trazodone 100 mg nighttime as well as Seroquel 300 mg. His labs are unremarkable. He does show some signs of dehydration. He reports that he has not drank much water in the past 3 days. He does have some slight anemia. He is medically cleared for mental health evaluation. Took over care of this patient during my shift. This is a patient on a mental health hold. There were no acute events during my shift. Differential Dx:Considerations: Include: Alcohol abuse, Bipolar disorder, Depression, Homicidal, Personality disorder, Substance abuse, Suicidal Departure Disposition: 30 STILL A PATIENT Impression: Primary Impression: Suicidal ideation Referrals: NO PRIMARY CARE PROVIDER (PCP) Additional Comment Transfer of Care: Transfer of care to Dr. Whitehead at shift change. Medical Screen Exam This patient recieved a medical screening examination. After reviewing the individual's medical complaints with presenting symptoms and performing an appropriate physical examination, it was determined that no immediate life- threatening emergency medical condition is present. This individual is also not a women having contractions. Signature Scribe Signature: . Attestation: Scribed for Whitney Nino by Whitney Allen NP . 06/29/25 00:21 Parts of this note were created using [employer] voice recognition software program. While efforts were made to correct any mistakes made by this voice recognition software program, nonsensical phrases may remain in this note. In addition, there may be errors and syntax, grammar, content and spelling. WHITNEY NINO Jun 28, 2025 21:51 MALINI MERCHANT MD Jun 29, 2025 14:41
[2025-06-29 12:52] LABS: LEUKOCYTE ESTERASE ,URINE NEGATIVE (Neg); NITRITES, URINE NEGATIVE (Neg); OCCULT BLOOD,URINE NEGATIVE (Neg)
[2025-06-29 12:57] LABS: UA COLLECTION TYPE URINAL
[2025-06-29 13:09] LABS: URINE AMPHETAMINE SCREEN POSITIVE (Neg); URINE BARBITUATE SCREEN NEGATIVE (Neg); URINE BENZODIAZEPINES SCREEN NEGATIVE (Neg); URINE CANNABINOID SCREEN POSITIVE (Neg); URINE COCAINE SCREEN NEGATIVE (Neg); URINE METHADONE SCREEN NEGATIVE (Neg); URINE OPIATE SCREEN NEGATIVE (Neg); URINE PHENCYCLIDINE SCREEN NEGATIVE (Neg)
[2025-06-29] MEDS ORDERED: TRAZ300T2 PO ×2 (20:43→21:59)
[2025-06-30] MEDS: QUETIAPINE 150 MG TAB.SR.24H PO STA ×2 (00:21→00:41)
[2025-06-30] MEDS ORDERED: IBUP-1984 PO (02:02)
[2025-06-30] MEDS ORDERED: DOXY-224 PO (02:02)
[2025-06-30] MEDS ORDERED: DOXYCYCLINE 100MG CAPSULE PO SCH (08:00)
[2025-06-30] MEDS ORDERED: non-formulary drug (Gabapentin 1 TAB) PO SCH (08:00)
[2025-06-30] MEDS ORDERED: ibuprofen tablet 400 MG TABLET PO PRN (08:00)
[2025-06-30] MEDS: DOXYCYCLINE 100MG CAPSULE PO SCH (08:30)
[2025-06-30 12:51] VITALS: BP 136/87; PULSE 78; RESP 18; TEMP 98.6; O2SAT 99
[2025-06-30] MEDS ORDERED: QUETIAPINE 150 MG TAB.SR.24H PO SCH (21:00)
== END 2025-06-30 12:58 ==
LOC: ER 19:41
DX: R45.851 Suicidal ideations (principal); F32.A Depression, unspecified; F15.90 Other stimulant use, unspecified, uncomplicated; F12.90 Cannabis use, unspecified, uncomplicated; Z88.0 Allergy status to penicillin; Z88.8 Allergy status to other drugs, medicaments and biological substances; Z20.822 Contact with and (suspected) exposure to COVID-19; Z79.899 Other long term (current) drug therapy
CPT/HCPCS: 36415; 80048; 80305; 80320; 81003; 84443; 85025; 87811; 99285; J7120

== ENCOUNTER 2025-07-26 14:12 | Emergency (ER) | payer MEDICAID ==
[~2025-07-26] VITALS: Ht 175.3 cm; Wt 74.2 kg
[~2025-07-26 14:12] MED LIST changes: +BUPR-94 PO; +CLE150C PO; +HYDR-3964 PO; -MULT-1085 PO; -QUET-1 PO; +QUET100T34 PO; +TRAZ150T78 PO
[2025-07-26 14:16] VITALS: BP 130/86; PULSE 84; TEMP 98.6; O2SAT 98
[2025-07-26] MEDS ORDERED: HYDR-3965 PO (14:50)
--- NOTE | 2025-07-26 14:50 | Physician Documentation ---
HPI ~ General Chief Complaint: Tooth Problem Stated Complaint: TOOTH PAIN Time Seen by MD: 14:31 OK to notify your PCP?: Yes Primary Medical Doctor: Robert walk-in Source: patient Mode of Arrival: POV Exam Limitations: no limitations History of Present Illness HPI Comment Has been taking clindamycin as prescribed and is on day 5. He reports that this is a 10 day course. This was given to him by his dentist. He reports that he has an appointment next week to have teeth pulled by oral surgeon. He reports that he tried taking Tylenol and ibuprofen with no relief. He has not taken today for the pain. He is requesting medication to get his through till he sees the surgeon next week. Medication Reconciliation Allergies: Coded Allergies: Penicillins (Verified Allergy, Unknown, UNKNOWN, 07/26/25) Scheduled Bupropion Hcl (Wellbutrin Xl), 150 MG PO DAILY Clindamycin HCl (Clindamycin HCl), 300 MG PO Q6H Gabapentin (Gabapentin), 1 TAB PO TID Quetiapine Fumarate (Quetiapine Fumarate), 200 MG PO HS Trazodone Hcl (Trazodone Hcl), 150 MG PO HS@20 Scheduled PRN Hydrocodone Bit/Acetaminophen (Hydrocodon-Acetaminophen 5-325), 1 TAB PO Q8H PRN for severe pain (7-10) Discontinued Medications Quetiapine Fumarate (Quetiapine Fumarate ER), 1 TAB PO HS, (Reported) Trazodone HCl (Trazodone HCl), 1 TAB PO HS, (Reported) Past Medical History Past Medical History: No Pertinent History, Depression, Psychosis Past Surgical History: no surgical history Patient History: FH: diabetes mellitus MOTHER Paternal grandmother Alcohol Use: Occasionally Drug Use: marijuana, methamphetamine Lives with: Alone Lives In: Home, Homeless Occupation: unemployed Review of Systems All Other Systems at this time: Reviewed and Negative Physical Exam Vital Signs: RN Vital Signs have been reviewed: Yes, Temperature: 98.6, Source: Oral, Heart Rate: 84, Respiratory Rate: 16, BP: 130/86, Pulse Oximetry: 98, Weight: 74.200 Oxygen Flow Rate: 0 Pulse Oximetry Reflects: adequate oxygenation Physical Exam General: Alert, no distress. HEENT: No injection, moist mucous membranes. Neck: Full range of motion. Respiratory: No respiratory distress, equal chest rise and fall. Chest: No accessory muscle use. Cardiovascular: Regular rate and rhythm. Gastrointestinal: Nondistended. Extremities: Normal range of motion, no deformity. Neurologic: Oriented x4. Psychiatric: Normal mood and affect. Skin: Normal color, warm and dry. Mouth/Throat: dental tenderness Palate: normal inspection Teeth/Gums: carious, fractured tooth, missing teeth, tender, draining, gingiva redness, gingiva swelling Teeth/Gums teeth # 2,3,4 Progress Results/Orders Reviewed/noted all lab results: Yes Results/Orders Vital Signs 07/26/25 14:16 Temp 98.6 Pulse 84 Resp 16 B/P (MAP) 130/86 Pulse Ox 98 O2 Flow Rate 0 Medical Decision Making Additional information obtaine: old records Findings He is already taking antibiotics for tooth infection. Has planned extraction next week. Try Tylenol and ibuprofen with no relief. [place] given in the department rest sent to the pharmacy. Differential Dx:Considerations: Include: Facial Cellulitis, Periapical abscess, Tooth avulsion, Tooth Fracture, Tooth subluxation Departure Disposition: HOME / SELF CARE / HOMELESS Impression: Primary Impression: Dental abscess Additional Impression: Toothache Condition: Stable Discharge Instructions: Dental Abscess Additional Instructions: Continue scheduled appointment with oral surgeon next week. Continue clindamycin as prescribed. Referrals: NO PRIMARY CARE PROVIDER (PCP) Prescriptions Hydrocodone Bit/Acetaminophen 5/325 MG ([place] 5/325 MG) 5 Mg/325 Mg Tablet 1 TAB PO TID PRN for pain for 5 Days, #15 TAB Prov: WHITNEY ORTIZ 07/26/25 Education Educated: Patient Educated regarding: diagnosis, treatment, prognosis, need for follow up Additional Comment Medical Screen Exam This patient recieved a medical screening examination. After reviewing the individual's medical complaints with presenting symptoms and performing an appropriate physical examination, it was determined that no immediate life- threatening emergency medical condition is present. This individual is also not a women having contractions. Signature Scribe Signature: . Attestation: Scribed for Whitney Ortiz by Whitney Allen NP . 07/26/25 14:52 Parts of this note were created using [employer] voice recognition software program. While efforts were made to correct any mistakes made by this voice recognition software program, nonsensical phrases may remain in this note. In addition, there may be errors and syntax, grammar, content and spelling. WHITNEY ORTIZ [facility] Jul 26, 2025 14:50
[2025-07-26 15:06] VITALS: RESP 16
[2025-07-26] MEDS: HYDROcodone/acetaminophen 5mg/325mg tablet PO ONE (15:06)
== END 2025-07-26 15:12 | disposition home or self-care (01) ==
LOC: ER 14:12
DX: K04.7 Periapical abscess without sinus (principal); Z88.8 Allergy status to other drugs, medicaments and biological substances
CPT/HCPCS: 99283

== ENCOUNTER 2025-07-28 13:59 | Emergency (ER) | payer MEDICAID ==
[~2025-07-28] VITALS: Ht 175.3 cm; Wt 75.0 kg
[~2025-07-28 13:59] MED LIST changes: +HYDR-3965 PO
[2025-07-28 14:50] LABS: MEAN PLATELET VOLUME 7.8 FL (7.4-10.4); RED CELL DISTRIBUTION WIDTH 14.0 % (11.5-14.5)
[2025-07-28 15:21] LABS: CREATININE 1.25 MG/DL (0.60-1.10); TOTAL CARBON DIOXIDE 23.7 MMOL/L (24-32); eCRCL 68 ML/MIN; eGFR 60 ML/MIN
--- NOTE | 2025-07-28 15:22 | Physician Documentation ---
History of Present Illness ~ Chief Complaint: Suicidal Ideation Stated Complaint: SI Time Seen by MD: 14:29 Primary Medical Doctor: PAMELA RAYO Mode of Arrival: EMS HPI This is a 55-year-old male with a history of alcohol and methamphetamine abuse who presents by EMS for suicidal ideation, patient reported to EMS active plan to hang himself, patient reports that he was recently discharged from [facility] [place] and caused [facility] [place] requesting to return due to suicidal ideation and was advised by [facility] [place] to call 911 and present to the emergency department. Patient reports he is currently being treated for a dental abscess otherwise reports no other acute symptoms or concerns including no fever. Patient reports he normally drinks half a gal of hard alcohol daily and had last drink last night. Patient reports last methamphetamine use last night. Medication Reconciliation Allergies: Coded Allergies: Penicillins (Verified Allergy, Unknown, UNKNOWN, 07/26/25) Scheduled Bupropion Hcl SR* (Wellbutrin SR*), 1 TAB PO Q12H, (Reported) Clindamycin (Cleocin ), 2 CAP PO Q6H, (Reported) Gabapentin (Gabapentin), 1 TAB PO Q8H, (Reported) Quetiapine Fumarate (Quetiapine Fumarate), 1 TAB PO HS, (Reported) Trazodone Hcl (Trazodone Hcl), 1 TAB PO HS, (Reported) Scheduled PRN Chlordiazepoxide Hcl (Librium), 25 MG PO BID PRN for for anxiety/agitation Discontinued Medications Bupropion Hcl (Wellbutrin Xl), 150 MG PO DAILY Discontinued Reason: patient no longer taking Clindamycin HCl (Clindamycin HCl), 300 MG PO Q6H Discontinued Reason: patient no longer taking Gabapentin (Gabapentin), 1 TAB PO TID Discontinued Reason: patient no longer taking Quetiapine Fumarate (Quetiapine Fumarate ER), 1 TAB PO HS, (Reported) Quetiapine Fumarate (Quetiapine Fumarate), 200 MG PO HS Discontinued Reason: patient no longer taking Trazodone HCl (Trazodone HCl), 1 TAB PO HS, (Reported) Trazodone Hcl (Trazodone Hcl), 150 MG PO HS@20 Discontinued Reason: patient no longer taking Past Medical History Past Medical History: No Pertinent History, Depression, Psychosis Past Surgical History: no surgical history Patient History: FH: diabetes mellitus MOTHER Paternal grandmother Alcohol Use: Occasionally Drug Use: marijuana, methamphetamine Lives with: Alone Lives In: Home, Homeless Occupation: unemployed Review of Systems ROS As stated above in the HPI, otherwise all systems are reviewed and negative. Physical Exam Vital Signs: Temperature: 98.0, Source: Oral, Heart Rate: 88, Respiratory Rate: 18, BP: 126/64, Pulse Oximetry: 99, Weight: 75.000 Physical Exam VITALS: Reviewed and as above. GENERAL: Alert, nontoxic appearing, no apparent distress. HEENT: PERRLA, EOMI, facial swelling, no submandibular swelling, no elevation of the tongue. Generally poor dentition with erythema and purulent drainage from base of right rear upper 1st molar RESPIRATORY: No increased work of breathing, no respiratory distress, speaking in full clear sentences, clear lung sounds in all person CV: Regular rate and rhythm no murmur BACK: No CVA tenderness, no spinal tenderness GI: Soft, nontender, no rebound, no guarding, bowel sounds present MUSCULOSKELETAL: No deformities, moving all limbs equally SKIN: Warm and dry NEURO: GCS 15, no tremor PSYCH: Normal mood and affect, non anxious appearing, making statements of SI Progress Results/Orders Results/Orders Orders - NEVIN MEDRANO Med Rec (07/28/25 15:15) 1799.11 (07/28/25 15:15) Close Observation Level (07/28/25 15:15) Substance Use Navigator (07/28/25 15:15) Regular Diet (07/28/25 Dinner) Store Meds In Pharmacy (Store Meds In (07/28/25 15:50) Bupropion Sr Tablet (Wellbutrin Sr Table (07/28/25 20:00) Trazodone Tablet (Desyrel Tablet) (07/28/25 21:00) Quetiapine Fumarate Tablet (Seroquel) (07/28/25 21:00) Completed Orders - NEVIN MEDRANO Gabapentin Capsule (Neurontin Capsule) (07/29/25 00:00) Medications Received in ER Medications (Trade) Dose Ordered Sig/Alissa Route PRN Reason Start Time Stop Time Status Last Admin Dose Admin (Ativan tablet) 1 mg ONCE ONCE PO 07/29/25 11:07 07/29/25 11:13 DC 07/29/25 11:20 1 MG (milk of magnesia oral suspension) 30 ml ONCE ONCE PO 07/29/25 11:10 07/29/25 11:11 DC 07/29/25 11:20 30 ML (Cleocin capsule) 300 mg Q6H PO 07/29/25 11:25 07/29/25 11:39 300 MG Vital Signs 07/28/25 07/28/25 07/28/25 07/29/25 14:13 14:27 18:58 06:00 Temp 98.0 97.9 Pulse 88 87 Resp 18 19 B/P (MAP) 126/64 (84) 96/56 (69) Pulse Ox 99 99 O2 Flow Rate 0 07/29/25 07/29/25 08:15 11:20 Resp 14 16 B/P (MAP) Laboratory Tests Test 07/28/25 14:21 07/28/25 14:41 07/28/25 15:50 SARS-CoV-2 Antigen (Rapid) Negative White Blood Count 9.4 Red Blood Count 4.50 L Hemoglobin 14.2 Hematocrit 41.0 L Mean Corpuscular Volume 91.0 Mean Corpuscular Hemoglobin 31.5 H Mean Corpuscular Hemoglobin Concent 34.7 Red Cell Distribution Width 14.0 Platelet Count 251 Mean Platelet Volume 7.8 Neutrophils (%) (Auto) 60.3 Lymphocytes (%) (Auto) 25.2 Monocytes (%) (Auto) 12.8 H Eosinophils (%) (Auto) 1.0 Basophils (%) (Auto) 0.7 Neutrophils # (Auto) 5.7 Lymphocytes # (Auto) 2.4 Monocytes # (Auto) 1.2 H Eosinophils # (Auto) 0.1 Basophils # (Auto) 0.1 CBC Comment Sodium Level 139 Potassium Level 3.7 Chloride Level 105 Carbon Dioxide Level 23.7 L Anion Gap 10 Blood Urea Nitrogen 26 H Creatinine 1.25 H Estimated GFR/1.73 m2 60 BUN/Creatinine Ratio 20.8 H Glucose Level 79 Calcium Level 8.4 L Total Bilirubin 0.7 Aspartate Amino Transf (AST/SGOT) 34 Alanine Aminotransferase (ALT/SGPT) 27 Alkaline Phosphatase 83 Total Protein 7.8 Albumin 4.1 Globulin 3.7 Albumin/Globulin Ratio 1.1 Thyroid Stimulating Hormone (TSH) 0.89 Chemistry Comments Ethyl Alcohol Level < 10 Urine Specimen Description Non-specified Urine Color Yellow Urine Clarity Clear Urine pH 6.0 Urine Specific Clarence >=1.030 Urine Protein Negative Urine Glucose (UA) Negative Urine Ketones 40 H Urine Occult Blood Negative Urine Nitrite Negative Urine Bilirubin Small Urine Urobilinogen 0.2 Urine Leukocyte Esterase Negative Volume Urine Centrifuged 10 ml Urine Comment Urine Opiates Screen Negative Urine Methadone Screen Negative Urine Fentanyl Screen Negative Urine Barbiturates Screen Negative Urine Phencyclidine Screen Negative Urine Amphetamines Screen Positive Urine Benzodiazepines Screen Negative Urine Cocaine Screen Negative Urine Cannabinoids Screen Positive Drug Screen Comment Medical Decision Making Additional information obtaine: N/A Findings Given patient's past mental health history and reports of suicidal ideation with a plan patient meets criteria for 1799 was placed on mental health hold due to danger to self. Patient is otherwise well-appearing with benign physical exam, we will continue to treat patient's dental abscess with clindamycin as previously prescribed. Patient will be monitored for signs of alcohol withdrawal with plan for treatment with Librium. Patient is hemodynamically stable and appropriate for outpatient follow up. The patient be discharged or transferred a prescription for Librium has been sent to his preferred pharmacy. Transfer orders for [facility]: At this time there is no evidence of an emergent medical condition that would preclude (admission/transfer) to a psychiatric unit via [facility] for further psychiatric, as well as medical evaluation and treatment. At this time I have no reason to believe that transfer via [facility] would have serious medical compromise in the patient's health. Differential Dx:Considerations: Include: Alcohol abuse, Anxiety, Bipolar disorder, Conversion disorder, Depression, Homicidal, Panic disorder, Personality disorder, Schizophrenia, Substance abuse, Suicidal Departure Disposition: [address] [place] [address] Impression: Primary Impression: Suicidal ideation Additional Impressions: Alcohol abuse At risk for alcohol withdrawal Condition: Stable Discharge Instructions: Alcohol Withdrawal Syndrome, [id number], Suicidal Feelings: How to Help Yourself Additional Instructions: Transfer orders for [facility]: At this time there is no evidence of an emergent medical condition that would preclude (admission/transfer) to a psychiatric unit via [facility] for further psychiatric, as well as medical evaluation and treatment. At this time I have no reason to believe that transfer via [facility] would have serious medical compromise in the patient's health. Due to your history of alcohol abuse you have been prescribed medication called Librium to assist with alcohol withdrawal symptoms, please take this medication as prescribed, please do not mix this medication with other medications you drow sy and do not drink while on this medication. Please follow up with your primary care provider in the next few days. Please return to the emergency department for any new or worsening concerning symptoms. Referrals: NO PRIMARY CARE PROVIDER (PCP) Prescriptions Chlordiazepoxide Hcl (Librium) 25 Mg Capsule 25 MG PO BID PRN for for anxiety/agitation MDD 150 mg for 14 Days, #32 CAP Use 2 tablets by mouth 3 times a day for 2 days, then 2 tablets twice a day for 2 days, then 1 tablet 3 times a day for 2 days, then 1 tablet twice a day for 2 days, then 1 tablet a day for 2 days Prov: NEVIN MEDRANO 07/28/25 Education Educated: Patient Educated regarding: diagnosis, treatment, prognosis, need for follow up Signature Scribe Signature: No scribe Attestation: The note accurately reflects work and decisions made by me.MICHAEL Rosales 07/29/25 11:58 NEVIN MEDRANO Jul 28, 2025 15:22
[2025-07-28] MEDS ORDERED: BUPR150T8 PO (16:00)
[2025-07-28] MEDS ORDERED: TRAZ150T78 PO (16:03)
[2025-07-28] MEDS ORDERED: QUET200T31 PO (16:03)
[2025-07-28] MEDS ORDERED: CLIN150C2 PO (16:03)
[2025-07-28] MEDS ORDERED: GABA-1405 PO (16:03)
[2025-07-28 16:07] LABS: LEUKOCYTE ESTERASE ,URINE NEGATIVE (Neg); NITRITES, URINE NEGATIVE (Neg); OCCULT BLOOD,URINE NEGATIVE (Neg)
[2025-07-28 16:13] LABS: ETHANOL < 10 MG/DL (<10)
[2025-07-28 16:14] LABS: UA COLLECTION TYPE NON-SPECIFIED
[2025-07-28 16:32] LABS: URINE AMPHETAMINE SCREEN POSITIVE (Neg); URINE BARBITUATE SCREEN NEGATIVE (Neg); URINE BENZODIAZEPINES SCREEN NEGATIVE (Neg); URINE CANNABINOID SCREEN POSITIVE (Neg); URINE COCAINE SCREEN NEGATIVE (Neg); URINE METHADONE SCREEN NEGATIVE (Neg); URINE OPIATE SCREEN NEGATIVE (Neg); URINE PHENCYCLIDINE SCREEN NEGATIVE (Neg)
[2025-07-28] MEDS ORDERED: CHLO25CA10 PO (16:54)
[2025-07-28] MEDS: buPROPion SR 150mg tablet PO SCH (20:04)
[2025-07-29] MEDS: magnesium hydroxide 30ml (MOM) UD suspension PO ONE (11:20)
[2025-07-29 12:39] VITALS: BP 100/71; PULSE 87; RESP 18; TEMP 98; O2SAT 98
== END 2025-07-29 13:15 ==
LOC: ER 13:59
DX: R45.851 Suicidal ideations (principal); F15.90 Other stimulant use, unspecified, uncomplicated; F10.10 Alcohol abuse, uncomplicated; F12.90 Cannabis use, unspecified, uncomplicated; F32.A Depression, unspecified; Z88.0 Allergy status to penicillin; Z79.899 Other long term (current) drug therapy; Z59.00 Homelessness unspecified; Z56.0 Unemployment, unspecified; Z72.89 Other problems related to lifestyle; Z60.2 Problems related to living alone; Z20.822 Contact with and (suspected) exposure to COVID-19
CPT/HCPCS: 36415; 80053; 80305; 80320; 81003; 84443; 85025; 87811; 99285